=== PATIENT | female | born 1970 | race Caucasian/White ===

== ENCOUNTER 2023-03-16 14:57 | Emergency (ER) | payer SELFPAY ==
[~2023-03-16] VITALS: Ht 175.3 cm; Wt 73.9 kg
[2023-03-16 15:04] VITALS: BP 122/77; TEMP 98.4
[2023-03-16] MEDS ORDERED: LIDOCAINE HCL/PF 1% 30 ML SDV ONE (15:50)
[2023-03-16] MEDS ORDERED: BACI/NEOM/POLY B OINT PKT 1 UDPKT PACKET ONE (15:50)
[2023-03-16] MEDS ORDERED: BACI/NEOM/POLY B OINT PKT 1 UDPKT PACKET TP ONE (16:00)
[2023-03-16] MEDS ORDERED: LIDOCAINE HCL/PF 1% 30 ML VIAL TP ONE (16:00)
[2023-03-16 18:38] VITALS: O2SAT 100
== END 2023-03-16 18:38 | disposition home or self-care (01) ==
LOC: ER 15:01
DX: S61.011A Laceration without foreign body of right thumb without damage to nail, initial encounter (principal); Z88.0 Allergy status to penicillin; W26.8XXA Contact with other sharp object(s), not elsewhere classified, initial encounter; Y93.89 Activity, other specified; Y92.89 Other specified places as the place of occurrence of the external cause; Y99.8 Other external cause status
CPT/HCPCS: 64450; 99284; A6403; J3490

== ENCOUNTER 2023-09-25 10:58 | Emergency (ER) | payer BC ==
[~2023-09-25] VITALS: Ht 175.3 cm; Wt 72.1 kg
[2023-09-25 11:05] VITALS: BP 121/82; TEMP 98.3; O2SAT 100
[2023-09-25] MEDS ORDERED: LIDOCAINE 1%-EPI 1:100,000 20 ML VIAL ONE (11:10)
[2023-09-25] MEDS ORDERED: LET SOLN TOPICAL 8 ML UDC TP ONE (11:10)
[2023-09-25] MEDS ORDERED: HYDROCODONE/APAP 5/325MG TABLET ONE (11:12)
[2023-09-25] MEDS: LET SOLN TOPICAL 8 ML UDC TP ONE (11:12)
[2023-09-25] MEDS: HYDROCODONE/APAP 5/325MG TABLET PO ONE (11:12)
[2023-09-25] MEDS: LIDOCAINE 1%-EPI 1:100,000 20 ML VIAL TP ONE (11:13)
[2023-09-25] MEDS ORDERED: DOXY100C2 PO (11:56)
== END 2023-09-25 12:11 | disposition home or self-care (01) ==
LOC: ER 11:16
DX: L72.3 Sebaceous cyst (principal); Z79.899 Other long term (current) drug therapy; Z88.0 Allergy status to penicillin
CPT/HCPCS: 99283; 10060; A6403; J3490